=== PATIENT | female | born 1955 | race Caucasian/White ===

== ENCOUNTER → 2016-04-22 | Outpatient (CLI) | payer OTHER ==
[~2016-04-22] MED LIST: AFRIN15 ML; AFRIN3 ML NS; ALBUTEROL17 GM INH; ALER-CAP25 M1 PO; ALPRAZOLAM PO; ALPRAZOLAM1 MG PO; ANTIVERT PO; ASPIRIN 325 MG TAB; ASPIRIN PO; ASPIRIN325 M1 PO; ASPIRIN81 M2 PO; ATARAX PO; BAYER ASPIRIN325 M1 PO; BENADRYL25 MG PO; BIOTIN PO; CATAPRES0.3 MG PO; CLONIDINE HCL0.1 MG PO; CLONIDINE HCL0.3 MG PO; DELSYM30 MG/5 ML PO; EFFIENT10 MG PO; FISH OIL 1,001000 M1 PO; FLAX SEED OIL1000 M1 PO; FLONASE 0.05% N16 G1; FLONASE16 GM; GUAIFENESIN; HYDROCODON-ACE1 EA14; HYDROCODON-ACE1 EAC7 PO; HYDROCODON-ACE1 EACH PO; K-DUR20 ME1 PO; MACROBID100 M1 DOB; MILK OF MAGNESIA PO; MIRALAX17 GM PO; MUCINEX; MUCINEX D ER T1 EACH PO; MUCINEX DM1 TAB.SR . PO; MUCINEX PO; MUCUS ER600 MG PO; NITROGLYCERIN TD; NITROSTAT0.4 MG SL; PLAVIX PO; PRILOSEC PO; PRILOSEC40 MG PO; SOMA PO; TYLOX 5-500 CA1 EACH PO; VICODIN PO; VISTARIL PO; VIT D2 PO; VITAMIN D50000 UNIT PO; XANAX0.5 MG PO; XANAX1 MG PO; ZANTAC PO; [UNRECOGNIZED DRUG - REMARK]
[2016-04-22 12:05] LABS: BILIRUBIN,TOTAL 0.4 mg/dL (0.2-2.0); BUN/CREATININE RATIO 9.23; CALCIUM SERUM 8.9 mg/dL (8.4-10.2); CREATININE SERUM 1.3 mg/dL (0.6-1.4); GLOM FILT RATE Estimated 44.1 mL/min (>60); POTASSIUM 3.6 mmol/L (3.5-5.1); URIC ACID 5.9 mg/dL (2.6-7.2)
[2016-04-25 00:49] LABS: COMPLEMENT C3 122 mg/dL (90-180); COMPLEMENT C4 32 mg/dL (16-47)
[2016-04-25 12:46] LABS: ALDOSTERONE SERUM 5 ng/dL (***)
[2016-04-26 21:02] LABS: ANA SCREEN Positive (Negative); ANA TITER COMMENT Has been added (()); MYELOPEROXIDASE AB (PNL) <1.0 AI (<1.0); NUCLEAR PATTERN (ANA) Nucleolar (()); PROTEINASE-3 AB (PNL) <1.0 AI (<1.0); SPE A1GLOB (PNL) 0.4 g/dL (0.2-0.3); SPE A2GLOB (PNL) 0.8 g/dL (0.5-0.9); SPE ALB (PNL) 3.9 g/dL (3.8-4.8); SPE BETA 1 GLOBULIN 0.4 g/dL (0.4-0.6); SPE BETA 2 GLOBULIN 0.4 g/dL (0.2-0.5); SPE GAMMA (PNL) 0.9 g/dL (0.8-1.7); SPETP (PNL) 6.7 g/dL (6.1-8.1)
== END | disposition home or self-care (01) ==
LOC: SLAB 11:27
PROVIDERS: Internal Medicine Nephrology
DX: I12.9 Hypertensive chronic kidney disease with stage 1 through stage 4 chronic kidney disease, or unspecified chronic kidney disease (principal); N18.3 Chronic kidney disease, stage 3 (moderate); R31.9 Hematuria, unspecified
CPT/HCPCS: 36415; 80053; 82088; 84165; 84244; 84443; 84550; 86021; 86038; 86039; 86160

== ENCOUNTER → 2016-05-20 | Outpatient (CLI) | payer OTHER ==
--- NOTE | ~2016-05-20 | US77 ---
[facility] A Service of [facility] RADIOLOGY TEXT RESULTS PATIENT: BIA BOALNOS LOCATION: CNIV : 53 UNIT #: [id number] AGE: [address]: Melissa Levi MD SEX: F ORDER DR: [id number] [place], [place] [address] [id number] O MR#: [id number] Acc #: [id number] NAME: BIA BOLANOS : 1955 SEX: F STUDY DATE/TIME: 05/20/2016 12:01 UNIT: CNIV ROOM: STUDY DESCRIPTION: US Kidney Bilateral Complete Attending Physician: Deniz Levi M.D. Ordering Physician: Deniz Levi M.D. Primary Care Physician: Phoenix Hennessy M.D. MEDICAL IMAGING REPORT This report is preliminary unless electronic signature is present EXAM Renal ultrasound. HISTORY Chronic kidney disease, stage III. PROCEDURE Grayscale and Doppler imaging of the kidneys and bladder. COMPARISON 05/20/2016 FINDINGS Left kidney measures 10 cm. Increased parenchymal echotexture. Cortical thickness 10 mm. There is an 8-mm cyst in the left kidney. There is a 1.9-cm cyst in the left kidney. Unremarkable bladder. Right kidney measures 10.3 cm. Cortical thickness within normal limits. There is slightly increased parenchymal echotexture. No hydronephrosis. IMPRESSION 1. Both kidneys show increased echotexture. Favored to represent changes of chronic renal disease. 2. Small left renal cysts. Dictated by... Brayan Snowden M.D. THIS IS AN ELECTRONICALLY VERIFIED REPORT Brayan Snowden M.D. at 05/20/2016 4:51 PM CORRINA/mine [facility] A Service of [facility] RADIOLOGY TEXT RESULTS PATIENT: BIA BOLANOS LOCATION: CNIV : 53 UNIT #: [id number] AGE: [address]: Melissa Levi MD SEX: F ORDER DR: TD: 05/20/2016 16:12 JOB #: [id number] MEDICAL IMAGING REPORT Page 1 of 1 COPY
--- NOTE | ~2016-05-20 | US78 ---
[facility] A Service of [facility] RADIOLOGY TEXT RESULTS PATIENT: BIA BOLANOS LOCATION: CNIV : 53 UNIT #: [id number] AGE: [address]: Melissa Levi MD SEX: F ORDER DR: [id number] [facility]. [place], [place] [address] [id number] O MR#: [id number] Acc #: [id number] NAME: BIA BOLANOS : 1955 SEX: F STUDY DATE/TIME: 05/20/2016 11:03 UNIT: CNIV ROOM: STUDY DESCRIPTION: US Kidney Duplex Complete Attending Physician: Deniz Levi M.D. Ordering Physician: Deniz Levi M.D. Primary Care Physician: Phoenix Hennessy M.D. MEDICAL IMAGING REPORT This report is preliminary unless electronic signature is present EXAM Renal duplex Doppler INDICATIONS Hypertension refractory to hypertensive medications. Chronic kidney disease. COMPARISON Renal ultrasound dated 05/20/2016. FINDINGS Henry-scale, color Doppler, and spectral ultrasound of the renal vasculature was performed. The abdominal aorta is patent. No focal velocity elevations are identified in the right renal artery. Peak systolic velocity in the renal artery measures 173 cm/sec proximally, 115 cm/sec in the midportion and 113 cm/sec in the distal vessel. Segmental and arterial vessels are patent. Resistive indices range from 0.69 to 0.63. The right renal vein is patent. No focal renal arterial stenosis in the left renal artery. Peak systolic velocities are 150 cm/sec, 82 cm/sec, and 62 cm/sec. Segmental and arcuate vessels are patent. Resistive indices range from 0.54 to 0.63. The left renal vein is patent. IMPRESSION No evidence of a renal arterial stenosis. Dictated by... John Anderson M.D. THIS IS AN ELECTRONICALLY VERIFIED REPORT John Anderson M.D. at 05/22/2016 10:43 AM [facility] A Service Community [facility] RADIOLOGY TEXT RESULTS PATIENT: BIA BOLANOS LOCATION: [facility] : 53 UNIT #: [id number] AGE: [address]: Melissa Levi MD SEX: F ORDER DR: JEFF/ashleyr TD: 05/22/2016 05:18 JOB #: [id number] MEDICAL IMAGING REPORT Page 1 of 1 COPY
== END | disposition home or self-care (01) ==
LOC: CNIV 10:26
DX: I12.9 Hypertensive chronic kidney disease with stage 1 through stage 4 chronic kidney disease, or unspecified chronic kidney disease (principal); N18.3 Chronic kidney disease, stage 3 (moderate); N28.1 Cyst of kidney, acquired
CPT/HCPCS: 76770; 93975

== ENCOUNTER → 2016-05-31 | Outpatient (CLI) | payer OTHER ==
[2016-05-31 12:07] LABS: BILIRUBIN,TOTAL 0.5 mg/dL (0.2-2.0); BUN/CREATININE RATIO 10.76; CALCIUM SERUM 9.1 mg/dL (8.4-10.2); CREATININE SERUM 1.3 mg/dL (0.6-1.4); GLOM FILT RATE Estimated 43.9 mL/min (>60); POTASSIUM 4.4 mmol/L (3.5-5.1); PROTEIN TOTAL SERUM 7.2 g/dL (6.0-8.3); URIC ACID 5.9 mg/dL (2.6-7.2)
[2016-06-02 01:16] LABS: COMPLEMENT C3 122 mg/dL (90-180); COMPLEMENT C4 31 mg/dL (16-47)
[2016-06-02 04:08] LABS: ANA SCREEN Positive (Negative); ANA TITER COMMENT Has been added (()); MYELOPEROXIDASE AB (PNL) <1.0 AI (<1.0); NUCLEAR PATTERN (ANA) Homogeneous (()); PROTEINASE-3 AB (PNL) <1.0 AI (<1.0); SPE A1GLOB (PNL) 0.4 g/dL (0.2-0.3); SPE A2GLOB (PNL) 0.7 g/dL (0.5-0.9); SPE ALB (PNL) 3.8 g/dL (3.8-4.8); SPE BETA 1 GLOBULIN 0.4 g/dL (0.4-0.6); SPE BETA 2 GLOBULIN 0.4 g/dL (0.2-0.5); SPE GAMMA (PNL) 0.9 g/dL (0.8-1.7); SPETP (PNL) 6.7 g/dL (6.1-8.1)
[2016-06-02 14:15] LABS: ALDOSTERONE SERUM 5 ng/dL (***)
== END | disposition home or self-care (01) ==
LOC: SLAB 11:34
PROVIDERS: Internal Medicine Nephrology
DX: I12.9 Hypertensive chronic kidney disease with stage 1 through stage 4 chronic kidney disease, or unspecified chronic kidney disease (principal); N18.3 Chronic kidney disease, stage 3 (moderate); R31.9 Hematuria, unspecified
CPT/HCPCS: 36415; 80053; 82088; 84165; 84244; 84443; 84550; 86021; 86038; 86039; 86160

== ENCOUNTER 2016-06-25 20:58 | Emergency (ER) | payer OTHER ==
--- NOTE | ~2016-06-25 | CR72 ---
[facility] A Service of [facility] RADIOLOGY TEXT RESULTS PATIENT: BIA BOLANOS LOCATION: SED : 53 UNIT #: [id number] AGE: [address]: Juan Alegria MD SEX: F ORDER DR: [id number] [address] [address] [id number] E MR#: [id number] Acc #: [id number] NAME: BIA BOLANOS : 1955 SEX: F STUDY DATE/TIME: 06/25/2016 21:03 UNIT: SED ROOM: STUDY DESCRIPTION: CR Chest Single View Portable Attending Physician: Juan Alegria M.D. Ordering Physician: Juan Alegria M.D. Primary Care Physician: No Primary Care Physician MEDICAL IMAGING REPORT This report is preliminary unless electronic signature is present. EXAM Portable chest. INDICATIONS Chest pain and dizziness since 6:30 p.m. DATE OF EXAM 06/25/2016 COMPARISON 05/18/2014. FINDINGS Portable view of the chest was obtained. The heart size and vascularity are normal. Lungs are clear. The bones are unremarkable. IMPRESSION No active disease. Dictated by... Parrish Ruiz M.D. THIS IS AN ELECTRONICALLY VERIFIED REPORT Parrish Ruiz M.D. at 06/27/2016 7:14 AM DIAMOND/aidan TD: 06/25/2016 23:50 JOB #: [id number] MEDICAL IMAGING REPORT Page 1 of 1
--- NOTE | ~2016-06-25 | EKG ---
PATIENT: BIA BOLANOS UNIT #: [id number] Ventricular Rate: 111 BPM Atrial Rate: 111 BPM P-R Interval: 132 ms QRS Duration: 78 ms Q-T Interval: 326 ms QTC Calculation(Bezet): 443 ms P [place]: 55 degrees Calculated R [place]: 37 degrees Calculated T [place]: 71 degrees Diagnosis Line: Sinus tachycardia Diagnosis Line: Nonspecific ST and T wave abnormality Diagnosis Line: Borderline ECG Diagnosis Line: When compared with ECG of 18-MAY-2014 08:49, Diagnosis Line: Nonspecific T wave abnormality now evident in Diagnosis Line: Lateral leads Diagnosis Line: Confirmed by MONTY ADAMS MD ([id number]) on 06/29/2016 Diagnosis Line: 9:32:46 AM INTERPRETING MD: BRYAN RANKIN
[~2016-06-25 20:58] MED LIST changes: -ASPIRIN81 M2 PO; -HYDROCODON-ACE1 EA14; -MACROBID100 M1 DOB
[2016-06-25 21:04] LABS: INR 0.9; PROTHROMBIN TIME (PATIENT) 10.7 SECONDS (9.5-12.4)
[2016-06-25 21:05] LABS: BASOPHIL# 0.1 X10e3 (0-0.3); BASOPHIL% 1.1 % (0-2.5); EOSINOPHIL# 0.2 X10e3 (0-0.7); EOSINOPHIL% 3.8 % (0.0-7.0); HEMATOCRIT 41.4 % (35.0-45.0); HEMOGLOBIN 14.1 gm/dL (12.0-16.0); LYMPHOCYTE# 1.1 X10e3 (1.0-3.5); LYMPHOCYTE% 19.8 % (17.0-45.0); MEAN CELL VOLUME 94.4 FL (83-96); MEAN CORPUSCULAR HEMOGLOBIN 32.1 PG (28-34); MEAN PLATELET VOLUME 9.3 FL (6.5-11.5); MONOCYTE# 0.5 X10e3 (0-1.0); MONOCYTE% 9.2 % (3.0-12.0); NEUTROPHIL# 3.6 X10e3 (1.5-7.1); NEUTROPHIL% 66.1 % (40-75); PLATELET COUNT 188 X10e3 (140-420); RED BLOOD COUNT 4.39 X10e (3.90-5.30); RED CELL DISTRIBUTION WIDTH 12.3 % (11.0-15.5); WHITE BLOOD COUNT 5.4 X10e3 (4.0-10.5)
[2016-06-25 21:06] LABS: DIFF IND NO
[2016-06-25 21:11] LABS: PARTIAL THROMBOPLASTIN TIME 26.7 SECONDS (25.6-38.1)
[2016-06-25 21:13] LABS: ALBUMIN SERUM 4.1 g/dL (3.5-5.0); BILIRUBIN, DIRECT 0.1 mg/dL (0.0-0.2); BILIRUBIN,INDIRECT 0.1 mg/dL (0.0-0.9); BILIRUBIN,TOTAL 0.2 mg/dL (0.2-2.0); CALCIUM SERUM 9.4 mg/dL (8.4-10.2); CREATININE SERUM 1.5 mg/dL (0.6-1.4); POTASSIUM 3.9 mmol/L (3.5-5.1); PROTEIN TOTAL SERUM 7.7 g/dL (6.0-8.3)
[2016-06-25 21:16] LABS: POC - CKMB 2.4 ng/mL (0.0-7.9); POC - TROPONIN <0.05 ng/mL (<=0.05)
[2016-06-25 23:13] LABS: POC - CKMB 1.2 ng/mL (0.0-7.9); POC - TROPONIN <0.05 ng/mL (<=0.05)
== END 2016-06-26 00:18 | disposition home or self-care (01) ==
LOC: SED 20:58
PROVIDERS: Emergency Medicine
DX: R00.2 Palpitations (principal); R07.9 Chest pain, unspecified; I10 Essential (primary) hypertension; I25.10 Atherosclerotic heart disease of native coronary artery without angina pectoris; F17.200 Nicotine dependence, unspecified, uncomplicated; Z88.1 Allergy status to other antibiotic agents; Z88.6 Allergy status to analgesic agent; Z79.899 Other long term (current) drug therapy
CPT/HCPCS: 36415; 71010; 80048; 80076; 82553; 84484; 85025; 85610; 85730; 93005; 96374; 99284; J0360

== ENCOUNTER → 2016-06-28 | Outpatient (CLI) | payer OTHER ==
[~2016-06-28] MED LIST changes: +ASPIRIN81 M2 PO; +HYDROCODON-ACE1 EA14; +MACROBID100 M1 DOB
[2016-06-28 10:51] LABS: BUN/CREATININE RATIO 11.25; CALCIUM SERUM 8.7 mg/dL (8.4-10.2); CREATININE SERUM 1.6 mg/dL (0.6-1.4); GLOM FILT RATE Estimated 34.2 mL/min (>60); POTASSIUM 4.1 mmol/L (3.5-5.1)
== END | disposition home or self-care (01) ==
LOC: SLAB 09:35
PROVIDERS: Internal Medicine Nephrology
DX: N18.3 Chronic kidney disease, stage 3 (moderate) (principal); R31.9 Hematuria, unspecified
CPT/HCPCS: 36415; 80048; 83520; 86225

== ENCOUNTER 2016-07-08 01:35 | Emergency (ER) | payer OTHER ==
--- NOTE | ~2016-07-08 | EKG ---
PATIENT: BIA BOLANOS UNIT #: [id number] Ventricular Rate: 68 BPM Atrial Rate: 68 BPM P-R Interval: 138 ms QRS Duration: 82 ms Q-T Interval: 416 ms QTC Calculation(Bezet): 442 ms P [place]: 64 degrees Calculated R [place]: 53 degrees Calculated T [place]: 75 degrees Diagnosis Line: Normal sinus rhythm Diagnosis Line: Normal ECG Diagnosis Line: No previous ECGs available Diagnosis Line: Confirmed by WALLACE MICHAUD MD ([id number]) on Diagnosis Line: 07/08/2016 8:55:31 AM INTERPRETING MD: JASWANT RANKIN
--- NOTE | ~2016-07-08 | EKG ---
PATIENT: BIA BOLANOS UNIT #: [id number] Ventricular Rate: 82 BPM Atrial Rate: 82 BPM P-R Interval: 136 ms QRS Duration: 78 ms Q-T Interval: 384 ms QTC Calculation(Bezet): 448 ms P [place]: 67 degrees Calculated R [place]: 49 degrees Calculated T [place]: 63 degrees Diagnosis Line: Normal sinus rhythm Diagnosis Line: Normal ECG Diagnosis Line: When compared with ECG of 08-JUL-2016 04:10, Diagnosis Line: (unconfirmed) Diagnosis Line: Premature ventricular complexes are no longer Diagnosis Line: Present Diagnosis Line: Confirmed by WALLACE MICHAUD MD ([id number]) on Diagnosis Line: 07/08/2016 8:55:34 AM INTERPRETING MD: JASWANT RANKIN
--- NOTE | ~2016-07-08 | CR72 ---
[facility] A Service of [facility] RADIOLOGY TEXT RESULTS PATIENT: BIA BOLANOS LOCATION: [facility] : 53 UNIT #: [id number] AGE: [address]: Vlad Chung MD SEX: F ORDER DR: [id number] [facility] [address] [facility]. [place], [place] [address] [id number] E MR#: [id number] Acc #: [id number] NAME: BIA BOLANOS : 1955 SEX: F STUDY DATE/TIME: 07/08/2016 01:55 UNIT: [facility] ROOM: STUDY DESCRIPTION: CR Chest Single View Portable Attending Physician: Vlad Chung M.D. Ordering Physician: Vlad Chung M.D. Primary Care Physician: Primary Care Physician No MEDICAL IMAGING REPORT This report is preliminary unless electronic signature is present EXAM Portable chest, 07/08 01:55 INDICATIONS Mid chest pain with heart palpitations started today. FINDINGS AP portable chest is compared with 06/25/2016. Cardiac and mediastinal contours are within normal limits. Lungs remain clear. No pneumothorax is seen. There is some atherosclerotic disease in the aortic arch. IMPRESSION No active disease. Dictated by... Michael Walker Jr., M.D. THIS IS AN ELECTRONICALLY VERIFIED REPORT Michael Walker Jr., M.D. at 07/08/2016 5:36 AM LEXIE/almaz TD: 07/08/2016 03:28 JOB #: [id number] MEDICAL IMAGING REPORT Page 1 of 1 COPY
[~2016-07-08 01:35] MED LIST changes: -ASPIRIN81 M2 PO; -HYDROCODON-ACE1 EA14; -MACROBID100 M1 DOB
[2016-07-08 02:17] LABS: URINE SOURCE CLEAN CATCH
[2016-07-08 02:21] LABS: BASOPHIL# 0.1 X10e3 (0-0.3); BASOPHIL% 1.3 % (0-2.5); EOSINOPHIL# 0.2 X10e3 (0-0.7); EOSINOPHIL% 2.9 % (0.0-7.0); HEMATOCRIT 38.8 % (35.0-45.0); LYMPHOCYTE# 0.6 X10e3 (1.0-3.5); LYMPHOCYTE% 10.2 % (17.0-45.0); MEAN CELL VOLUME 94.1 FL (83-96); MEAN CORPUSCULAR HEMOGLOBIN 31.6 PG (28-34); MEAN CORPUSCULAR HGB CONC 33.5 g/dL (30-36); MEAN PLATELET VOLUME 8.6 FL (6.5-11.5); MONOCYTE# 0.5 X10e3 (0-1.0); MONOCYTE% 7.7 % (3.0-12.0); NEUTROPHIL# 4.6 X10e3 (1.5-7.1); NEUTROPHIL% 77.9 % (40-75); PLATELET COUNT 195 X10e3 (140-420); RED BLOOD COUNT 4.13 X10e (3.90-5.30); RED CELL DISTRIBUTION WIDTH 12.1 % (11.0-15.5); WHITE BLOOD COUNT 5.9 X10e3 (4.0-10.5)
[2016-07-08 02:22] LABS: URINE APPEARANCE CLEAR; URINE BILIRUBIN NEG (NEG); URINE BLOOD TRACE (NEG); URINE COLOR YELLOW; URINE GLUCOSE NEG (NEG); URINE KETONE NEG (NEG); URINE LEUKOCYTE ESTERASE NEG (NEG); URINE NITRATE NEG (NEG); URINE PH 7.5 (5-8); URINE PROTEIN NEG (NEG); URINE SPECIFIC GRAVITY 1.004 (1.003-1.035); URINE UROBILINOGEN 0.2 MG/DL (NEG)
[2016-07-08 02:24] LABS: URBCS1 AUWI 0-2 /[HPF] (0-2); URINE BACTERIA AUWI NEG (NEGATIVE); URINE SQUAMOUS EPITHELIAL CELL NONE SEEN /[HPF]; UWBCS1 AUWI 0-2 (0-5)
[2016-07-08 02:26] LABS: DIFF IND NO
[2016-07-08 02:28] LABS: CULTURE INDICATED? NO
[2016-07-08 02:32] LABS: AMPHETAMINE NEG (NEG); BARBITURATES NEG (NEG); BENZODIAZEPINES NEG (NEG); COCAINE NEG (NEG); MARIJUANA NEG (NEG); OPIATES NEG (NEG); TRICYCLIC ANTIDEPRESSANTS NEG (NEG); U METHADONE NEG (NEG)
[2016-07-08 02:33] LABS: POC - CKMB 2.4 ng/mL (0.0-7.9); POC - TROPONIN <0.05 ng/mL (<=0.05)
[2016-07-08 02:35] LABS: INR 0.9; PARTIAL THROMBOPLASTIN TIME 26.2 SECONDS (23.5-31.3); PROTHROMBIN TIME (PATIENT) 9.4 SECONDS (9.6-11.5)
[2016-07-08 02:43] LABS: ALBUMIN SERUM 4.2 g/dL (3.5-5.0); BILIRUBIN, DIRECT 0.1 mg/dL (0.0-0.2); BILIRUBIN,INDIRECT 0.6 mg/dL (0.0-0.9); BILIRUBIN,TOTAL 0.7 mg/dL (0.2-2.0); BUN/CREATININE RATIO 8.46; CALCIUM SERUM 9.2 mg/dL (8.4-10.2); CREATININE SERUM 1.3 mg/dL (0.6-1.4); GLOM FILT RATE Estimated 43.9 mL/min (>60); MAGNESIUM 1.9 mg/dL (1.6-3.0); POTASSIUM 4.4 mmol/L (3.5-5.1); PROTEIN TOTAL SERUM 7.4 g/dL (6.0-8.3)
[2016-07-08 04:59] LABS: POC - CKMB 3.3 ng/mL (0.0-7.9); POC - TROPONIN <0.05 ng/mL (<=0.05)
== END 2016-07-08 05:10 | disposition home or self-care (01) ==
LOC: CED 01:35
PROVIDERS: Emergency Medicine
DX: R00.2 Palpitations (principal); J44.9 Chronic obstructive pulmonary disease, unspecified; I10 Essential (primary) hypertension; Z90.49 Acquired absence of other specified parts of digestive tract; Z90.710 Acquired absence of both cervix and uterus; Z98.890 Other specified postprocedural states; Z88.8 Allergy status to other drugs, medicaments and biological substances; Z88.2 Allergy status to sulfonamides; Z88.1 Allergy status to other antibiotic agents
CPT/HCPCS: 36415; 71010; 80048; 80076; 80307; 81003; 82553; 83735; 84443; 84484; 85025; 85610; 85730; 93005; 96374; 99284; J0360; J2060

== ENCOUNTER 2016-09-17 13:42 | Emergency (ER) | payer OTHER ==
--- NOTE | ~2016-09-17 | CT4 ---
[facility] A Service of [facility] RADIOLOGY TEXT RESULTS PATIENT: BIA BOLANOS LOCATION: SED : 53 UNIT #: [id number] AGE: [address]: Parrish Santoyo MD SEX: F ORDER DR: [id number] [address] [address] [id number] E MR#: [id number] Acc #: [id number] NAME: BIA BOLANOS : 1955 SEX: F STUDY DATE/TIME: 09/17/2016 14:17 UNIT: SED ROOM: STUDY DESCRIPTION: CT Abd and Pelv Wo Cont Attending Physician: Parrish Santoyo M.D. Ordering Physician: Parrish Santoyo M.D. Primary Care Physician: No Primary Care Physician MEDICAL IMAGING REPORT This report is preliminary unless electronic signature is present. EXAM Abdomen and pelvis CT no contrast 09/17/2016. INDICATIONS Lower pelvic pain intermittently since , worse symptoms today. History of hysterectomy and cholecystectomy. TECHNIQUE Noncontrast abdomen and pelvis CT was performed. This CT exam was performed with one or more of the following radiation dose reduction techniques: automatic exposure control, adjustment of mA and/or kV according to patient size, and iterative reconstruction. COMPARISON Compared with 05/08/2011. FINDINGS CT abdomen: Exam markedly degraded by noncontrast technique. No effusion. Aorta demonstrates ectasia and atherosclerotic change. Spleen and adrenal glands are unremarkable. The pancreas is atrophic. There is decreased attenuation of the proximal body of the pancreas which may be related to beam hardening or other CT artifact, but raises the possibility of an underlying pancreatic mass. There is no upstream pancreatic ductal dilatation or other distinct stigmata of a mass, but this should be further assessed with nonemergent outpatient multiphase protocol MRI or CT if patient is not a candidate for MRI. Gallbladder surgically absent. Liver unremarkable. Kidneys demonstrate no hydronephrosis. There are benign cysts in the left kidney that are unchanged. Stomach contracted. CT pelvis: Bladder unremarkable. Uterus surgically absent. Stool burden suggestive of constipation. Appendix not clearly identified, but no secondary sign of appendicitis. Inguinal canals are unremarkable. There STS. [facility] A Service of [facility] & [facility] RADIOLOGY TEXT RESULTS PATIENT: BIA BOLANOS LOCATION: SED : 53 UNIT #: [id number] AGE: [address]: Parrish Santoyo MD SEX: F ORDER DR: are bilateral pars defects at L5-S1 and there is grade 1/2 antegrade listhesis of L5 on S1 that is unchanged. IMPRESSION 1. No clearly acute process identified. No bowel obstruction, drainable fluid collection or focal area inflammatory change. 2. Appendix not identified. No secondary sign of appendicitis. 3. Incidental left renal cysts. 4. Unusual appearance of the proximal body pancreas. This could potentially represent underlying mass, but there is no other stigmata of mass on CT today. Multiphase imaging recommended on a nonemergent basis as described above for further assessment. 5. 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 Dictated by... Devin Dietz M.D. THIS IS AN ELECTRONICALLY VERIFIED REPORT Devin Dietz M.D. at 09/18/2016 2:22 PM Jose TD: 09/18/2016 09:10 JOB #: [id number] MEDICAL IMAGING REPORT Page 1 of 1
[2016-09-17] MEDS ORDERED: ASPIRIN81 M2 PO (13:58)
[2016-09-17 14:43] LABS: URINE SOURCE CLEAN CATCH
[2016-09-17 14:45] LABS: URINE APPEARANCE CLEAR; URINE BILIRUBIN NEG (NEG); URINE BLOOD 1+ (NEG); URINE COLOR YELLOW; URINE GLUCOSE NEG (NORM); URINE KETONE NEG (NEG); URINE LEUKOCYTE ESTERASE NEG (NEG); URINE NITRATE NEG (NEG); URINE PROTEIN NEG (NEG); URINE SPECIFIC GRAVITY <=1.005 (1.003-1.035); URINE UROBILINOGEN 0.2 MG/DL (NORM)
[2016-09-17 14:56] LABS: MICRO INDICATED? YES
[2016-09-17 15:11] LABS: CULTURE INDICATED? NO; URINE BACTERIA NEG (NEG); URINE RBC 0-2 /[HPF] (0-2); URINE WBC 0-2 /[HPF] (0-5)
[2016-09-17] MEDS ORDERED: HYDROCODON-ACE1 EA14 (16:10)
[2016-09-17] MEDS ORDERED: MACROBID100 M1 DOB (16:10)
== END 2016-09-17 16:10 | disposition home or self-care (01) ==
LOC: SED 13:42
PROVIDERS: Emergency Medicine
DX: N39.0 Urinary tract infection, site not specified (principal); F41.9 Anxiety disorder, unspecified; I10 Essential (primary) hypertension; K21.9 Gastro-esophageal reflux disease without esophagitis; F31.9 Bipolar disorder, unspecified; Z90.710 Acquired absence of both cervix and uterus; F17.210 Nicotine dependence, cigarettes, uncomplicated; Z88.1 Allergy status to other antibiotic agents; Z88.8 Allergy status to other drugs, medicaments and biological substances; Z88.0 Allergy status to penicillin; Z88.5 Allergy status to narcotic agent
CPT/HCPCS: 74176; 81003; 96372; 96374; 99284; J1170; J2550